=== PATIENT | male | born 2000 | race Caucasian/White ===

== ENCOUNTER 2022-04-26 21:04 | Emergency (ER) | payer BC, SELFPAY ==
--- NOTE | ~2022-04-26 | XR_ITS ---
EXAM: XR wrist LT min 3V DATE: 04/26/2022 21:55 HISTORY: FALL ON ARM, PAIN TO ANTERIOR WRIST . COMPARISON: None available. FINDINGS: Normal mineralization. No fracture or dislocation. No lytic or blastic lesion. Joint space s are maintained. No erosion or periosteal change. Soft tissues within normal limits. IMPRESSION: No acute osseous finding in the left wrist. Reviewed, dictated and finalized at location K.
--- NOTE | ~2022-04-26 | XR_ITS ---
EXAM: XR elbow LT min 3V DATE: 04/26/2022 21:54 HISTORY: FELL ON ARM TODAY, SWELLING THROUGHOUT, UNABLE TO EXTEND ARM . COMPARISON: None available. FINDINGS: Normal mineralization. Subtle cortical irregularity at the radial head. Large volume elbow joint fluid. No lytic or blastic lesion. Joint spaces are maintained. No erosion or periosteal hood e. Soft tissues within normal limits. IMPRESSION: Nondisplaced left radial head fracture. Large left elbow joint effusion. Reviewed, dictated and finalized at location K. IMPRESSION: Nondisplaced left radial head fracture. Large left elbow joint effu magy.
[2022-04-26 21:31] VITALS: BP 122/75; PULSE 84; RESP 18; TEMP 37.2; O2SAT 100
--- NOTE | 2022-04-26 21:59 | ED.GENADULT ---
HPI - General Adult General Chief complaint: Extremity Injury, Upper Stated complaint: arm pain Time Seen by Provider: 04/26/22 21:54 Source: RN notes reviewed History of Present Illness HPI narrative: Patient presents emergency department from home for left elbow and wrist pain. Patient states approximate charge prior to arrival he was skateboarding when he fell landing on his left elbow and wrist states he caught himself on his left arm he states did not strike his head and not having loss of consciousness he notes some abrasion on his left hand as well as his left elbow he states majority of his pain is located on his left elbow with pain with extension of his left elbow and unable to fully extend he denies any numbness or tingling in extremity denies any shoulder pain states he is not taking thing for the pain Related Data Allergies Allergy/AdvReac Type Severity Reaction Status Date / Time No Known Allergies Allergy Verified 04/26/22 21:53 Review of Systems Review of Systems: Gen.: Denies fevers or chills Musculoskeletal: See HPI Neuro: Denies numbness, tingling, weakness Skin: Denies rash Endo: Denies DM PMFSH Past Medical History Medical History (Updated 04/26/22 @ 22:16 by Horacio Hardwick DO) Patient denies significant medical history Social History Social History (Updated 04/26/22 @ 22:00 by Horacio Hardwick DO) Smoking status: Never smoker Exam Narrative: APPEARANCE: No acute distress, nontoxic, resting in bed Eyes: EOMI HEENT: Normocephalic, atraumatic, RESPIRATORY: No respiratory distress MUSCULOSKELETAl: Tender palpation of the left medial lateral elbow with mild swelling no ecchymosis pain with extension of the elbow unable to fully extend the elbow secondary to pain full flexion of the elbow no tenderness of the mid forearm mild tenderness of the radial aspect of the wrist with no swelling or ecchymosis full flexion-extension of the wrist without pain full flexion-extension of left MCP and IP joints, radial pulse 2+ neurovascular intact NEURO: Awake and alert. Following commands, speech normal, no focal deficits SKIN:: Warm, dry. Normal Color superficial abrasion over the left palm with no active bleeding or signs of infection superficial abrasion over the left lateral and posterior elbow with no active bleeding or signs of infection Course Course Emergency Course: Discussed with patient results of workup and diagnosis. Discussed need for follow-up with primary care, proper use of medication, and reasons to return to the emergency department. Patient understands and agrees to current treatment plan Vital Signs Vital signs: Vital Signs Temperature 98.9 F 04/26/22 21:31 Pulse Rate 84 04/26/22 21:31 Respiratory Rate 18 04/26/22 21:31 Blood Pressure 122/75 04/26/22 21:31 Pulse Oximetry 100 04/26/22 21:31 Oxygen Delivery Room Air 04/26/22 21:31 Temperature 98.9 F 04/26/22 21:31 Pulse Rate 84 04/26/22 21:31 Respiratory Rate 18 04/26/22 21:31 Blood Pressure 122/75 04/26/22 21:31 Pulse Oximetry 100 04/26/22 21:31 Oxygen Delivery Room Air 04/26/22 21:31 Medical Decision Making Vital Signs Vital Signs: Vital Signs Temperature 98.9 F 04/26/22 21:31 Pulse Rate 84 04/26/22 21:31 Respiratory Rate 18 04/26/22 21:31 Blood Pressure 122/75 04/26/22 21:31 Pulse Oximetry 100 04/26/22 21:31 Oxygen Delivery Room Air 04/26/22 21:31 Temperature 98.9 F 04/26/22 21:31 Pulse Rate 84 04/26/22 21:31 Respiratory Rate 18 04/26/22 21:31 Blood Pressure 122/75 04/26/22 21:31 Pulse Oximetry 100 04/26/22 21:31 Oxygen Delivery Room Air 04/26/22 21:31 Imaging Data Radiologist's impression: ITS Impressions Elbow X-Ray 04/26/22 22:09 IMPRESSION: Nondisplaced left radial head fracture. Large left elbow joint effusion. Wrist X-Ray 04/26/22 22:11 IMPRESSION: No acute osseous finding in the left wrist.
[2022-04-26] MEDS: IBUPROFEN 600 MG TABLET PO (22:14)
[2022-04-26] MEDS: TETANUS,DIPHTHERIA,AC PERTUSSIS ADULT (0.5 ML) BOOSTRIX IM (22:15)
== END 2022-04-26 22:47 | disposition home or self-care (01) ==
LOC: ANHED 22:40
PROVIDERS: Emergency Provider Emergency Medicine
DX: S52.125A Nondisplaced fracture of head of left radius, initial encounter for closed fracture (principal); S60.212A Contusion of left wrist, initial encounter; S60.512A Abrasion of left hand, initial encounter; S50.312A Abrasion of left elbow, initial encounter; Y93.51 Activity, roller skating (inline) and skateboarding; V00.131A Fall from skateboard, initial encounter
CPT/HCPCS: 73080; 73110; 90471; 90715; 96372; 99284; A4565; A9270